=== PATIENT | male | born 1990 ===

== ENCOUNTER 2023-08-06 03:57 | Emergency (ER) | payer BC, SELFPAY ==
[2023-08-06 03:58] VITALS: BP 142/94
[2023-08-06 04:25] VITALS: BMI 26.0
--- NOTE | 2023-08-06 04:36 | ED.GENMED ---
History of Present Illness
<BARBARA Diaz - Last Filed: 08/06/23 04:47>
General
Chief Complaint: Abdominal Pain
Source: patient
Time Seen by Provider: 08/06/23 04:21
Travel History
Have you had any contact with someone who has COVID-19?: No
Do you have any symptoms of coronavirus? Fever > 100 degrees, chills, cough, shortness of breath, sore throat, loss of taste or smell, muscle aches, or headache?: No
History of Present Illness
History of Present Illness:
32 year old male with no significant past medical hx who presents with sudden onset of sharp LLQ abdominal pain that occurred just prior to arrival. Pt had similar pain 2 days ago to the LUQ. Pain lasted for about 15-20 minutes and resolved. Tonight
the pain woke him up. He took ibuprofen 600 mg at 0330 today. His pain lasted for 30 minutes. Currently he is pain-free. He does report the pain radiates down the groin and he has dull pain to his penis. Denies fevers/chills, flank pain, n/v/d,
dysuria, hematuria. He has never had this pain before. He reports hx of appendectomy.
Review of Systems
<BARBARA Diaz - Last Filed: 08/06/23 04:47>
Review of Systems
Allergies reviewed?: Yes
All Other Systems: ROS reviewed and negative except as documented in HPI and ROS
Constitutional: Reports no symptoms
EENT: Reports no symptoms
Respiratory: Reports no symptoms
Cardiac: Reports no symptoms
ABD/GI: Reports abdominal pain
: Reports no symptoms
Musculoskeletal: Reports no symptoms
Skin: Reports no symptoms
Neurological: Reports no symptoms
Endocrine: Reports no symptoms
Hematologic/Lymphatic: Reports no symptoms
Psychiatric: Reports no symptoms
Phy Exam
<BARBARA Diaz - Last Filed: 08/06/23 04:47>
General Physical Exam
General Presentation: well appearing and no apparent distress
General age: appears stated age
General Skin: warm and dry
General Habitus: normal
General Mental: alert
General Hydration: appears well hydrated
General Chronic Disability: contractures
Cardiovascular Exam
Cardiovascular Exam: regular rate/rhythm, no edema, no gallop and no murmur
Pulmonary Exam
Pulmonary Exam: lungs clear, no respiratory distress, no rales, no crackles, no rhonchi, no wheezing and no cough
Gastrointestinal Exam
Gastrointestinal Exam: normal bowel sounds, non tender, soft, no pulsatile mass, non distended and no cva tenderness
Skin Exam
Skin Exam: normal color and warm/dry
Psychiatric Exam
Psychiatric Exam: normal mood/affect
Course
<BARBARA Diaz - Last Filed: 08/06/23 04:47>
Orders/Labs/Results
Orders:
Orders
08/06/23 04:26
IV Insert/Care/Rem.- Treatment PRN
08/06/23 04:28
Complete Blood Count/With Diff Urgent
Comprehensive Metabolic Panel Urgent
Lipase Urgent
Manual Differential Urgent
Urinalysis Reflex To Culture Urgent
Date Specimen was Collected: 08/06/23
Time Specimen was Collected: 04:26
Urine Microscopic Reflex Cult Urgent
08/06/23 04:43
CT Abd/pel Without Iv Or Oral Urgent
Comment:
Reason For Exam: intermittent LUQ to LLQ pain x 3 days
Abnormal Lab Results
08/06/23
04:28
Abs Neuts (Manual) 1.3 L 10^3/uL
(1.4-6.5)
Segmented Neutrophils 28 L %
(42-75)
Lymphocytes (Manual) 61 H %
(20-51)
Lipase 427 H U/L
(23-300)
Urine Ketones 1+ A
(Negative)
Ur Occult Blood Reflex 4+ A
(Negative)
Urine RBC 80-90 A /HPF
(0-2)
Urine Bacteria (Reflex) Few A
(Negative)
08/06/23 04:28
08/06/23 04:28
Vital Signs
Initial and Last Documented VS:
Initial Vital Signs
Temp Pulse Resp BP Pulse Ox
98.2 F 64 1 142/94 98
08/06/23 03:58 08/06/23 03:58 08/06/23 03:58 08/06/23 03:58 08/06/23 03:58
Last Documented Vital Signs
Temp Pulse Resp BP Pulse Ox
98.2 F 64 1 142/94 98
08/06/23 03:58 08/06/23 03:58 08/06/23 03:58 08/06/23 03:58 08/06/23 03:58
<Evelyn Bar, DO - Last Filed: 08/06/23 06:14>
Orders/Labs/Results
Orders:
Orders
08/06/23 04:26
IV Insert/Care/Rem.- Treatment PRN
08/06/23 04:28
Complete Blood Count/With Diff Urgent
Comprehensive Metabolic Panel Urgent
Lipase Urgent
Manual Differential Urgent
Urinalysis Reflex To Culture Urgent
Date Specimen was Collected: 08/06/23
Time Specimen was Collected: 04:26
Urine Microscopic Reflex Cult Urgent
08/06/23 04:43
CT Abd/pel Without Iv Or Oral Urgent
Comment:
Reason For Exam: intermittent LUQ to LLQ pain x 3 days
Abnormal Lab Results
08/06/23
04:28
Abs Neuts (Manual) 1.3 L 10^3/uL
(1.4-6.5)
Segmented Neutrophils 28 L %
(42-75)
Lymphocytes (Manual) 61 H %
(20-51)
Lipase 427 H U/L
(23-300)
Urine Ketones 1+ A
(Negative)
Ur Occult Blood Reflex 4+ A
(Negative)
Urine RBC 80-90 A /HPF
(0-2)
Urine Bacteria (Reflex) Few A
(Negative)
08/06/23 04:28
08/06/23 04:28
Vital Signs
Initial and Last Documented VS:
Initial Vital Signs
Temp Pulse Resp BP Pulse Ox
98.2 F 64 1 142/94 98
08/06/23 03:58 08/06/23 03:58 08/06/23 03:58 08/06/23 03:58 08/06/23 03:58
Last Documented Vital Signs
Temp Pulse Resp BP Pulse Ox
98.2 F 64 1 142/94 98
08/06/23 03:58 08/06/23 03:58 08/06/23 03:58 08/06/23 03:58 08/06/23 03:58
<BARBARA Diaz - Last Filed: 08/06/23 04:47>
MDM/Problems Addressed
Differential Diagnosis Includes:
renal colic, nephrolithiasis, SBO, colitis
MDM/Problems Addressed:
32 year old male who presents with LLQ abdominal pain that began just prior to arrival.
Chronic conditions affecting care: Psychiatric illness (anxiety)
<BARBARA Diaz - Last Filed: 08/06/23 04:47>
*Critical Care Note
Total Time (30-74mins, 75-104mins- exclusive of procedures): Not Applicable
<Evelyn Bar DO - Last Filed: 08/06/23 06:14>
*Radiology
Radiology exam reviewed: radiology read reviewed
*Pulse Oximetry
Patient hypoxic: no
ED Attending Note
<BARBARA Diaz - Last Filed: 08/06/23 04:47>
-
Portions of this chart may have been created with voice recognition software.� Occasional wrong word or��sound alike� substitutions may have occurred due to the inherent limitations of voice recognition software.
<Evelyn Bar DO - Last Filed: 08/06/23 06:14>
ED Attending Note
Patient seen and examined by attending physician: Yes
I performed the substantive portion of visit, reviewed & personally made and approve the management plan that is documented in note by myself or EJSSE.: Yes
I performed a history and physical exam of patient and discussed management with resident, I reviewed resident's note and agree with documented findings and plan of care.: Yes
ED Attending Note:
This is a 32-year-old gentleman who presents with 2-day history of initially intermittent moderate to severe acute left upper quadrant pain that has been intermittent in nature that has progressed to intermittent left lower quadrant pain, again
moderate to severe, intermittent. He awoke this morning with abrupt onset of recurrent left lower quadrant pain accompanied with discomfort at his distal urethra. He took ibuprofen 600 mg around 330 this morning and he is currently pain-free. No
history of similar episodes in the past. He does admit that left lower quadrant pain intermittently radiates to his left back. He denies leg pain or weakness. No testicular pain. No nausea nor vomiting.
He denies dysuria nor urgency nor hematuria but does note some urethral discomfort with onset of pain.
His only daily medication is sertraline. He has been taking ibuprofen intermittently for left-sided abdominal pain.
GENERAL: 32-year-old gentleman appears his stated age, bright and alert, pleasant, appears in no acute distress. is accompanying.
EYE: anicteric
NECK: Supple, nontender, no meningismus, no significant adenopathy.
ENT: oral mucosa is moist. No rhinorrhea.
CARDIAC: Regular rate and rhythm. no murmur.
LUNGS: Clear breath sounds bilaterally, no acute respiratory distress, no wheezes/rales/rhonchi
ABDOMEN: Soft, nondistended, without focal tenderness, no r/g, no cvat. normoactive BS. No palpable masses. No inguinal tenderness nor masses.
NEUROLOGICAL: Alert and oriented x3, no focal neuro deficits. Gait is vaz and steady.
SKIN: Warm and dry, normal color, skin intact. No rash.
MUSCULOSKELETAL: No C/C/E. peripheral pulses are full and equal b/l. No palpable tenderness.
PSYCH: Normal and appropriate interaction.
Concern for intermittent renal colic, other consideration is intermittent small bowel obstruction, less likely musculoskeletal pain.
Will check labs and urinalysis and plan for CT abdomen pelvis.
08/06/2023 0612 AM
Patient remains pain-free and comfortable. Abdomen is soft and nontender.
Labs are unremarkable save for mildly elevated lipase.
Urinalysis shows +4 blood, 80-90 RBCs but no evidence of infection.
CAT scan is unremarkable, no evidence of obstructing renal stone, no cholecystitis nor pancreatitis. Status post appendectomy.
I suspect patient may have recently passed a stone and he remains comfortable, pain-free.
Discussed importance of remaining well-hydrated on a daily basis.
If severe pain recurs prompt return to the ED.
Otherwise follow-up with PCP.
Discharge Plan
Departure
Patient Disposition: Home (Routine Discharge)
Date of Disposition: 08/06/23
Time of Disposition: 05:59
Patient with high blood pressure during this ER visit?: Yes
Condition: Good
Discharge Problem:
intermittent left renal colic, Hematuria, microscopic, Serum lipase elevation
Instructions: Renal Colic (DC), BLOOD PRESSURE
Prescriptions:
No Action
sertraline [Zoloft] 25 mg Tablet
25 mg PO DAILY
Referrals:
Ian Rodriguez MD [Active] - As needed
Kymberly Reyes CRNP [Family Provider] - Call in 1-3 days for appt
Activity Restrictions/Additional Instructions:
Your history and exam are most consistent with intermittent left kidney pain, concerning for recently passed kidney stone. You have microscopic blood in your urine.
CAT scan does not identify an obstructing kidney stone and I suspect you may have already passed it.
Your labs are overall unremarkable save for mildly elevated lipase which is a pancreatic enzyme. Your history and exam is not consistent with acute pancreatitis and pancreas is unremarkable on CAT scan.
I want you to stay well-hydrated on a daily basis. Mild urethral discomfort should resolve over the next day or 2.
As I suspect you have already passed kidney stone, left-sided abdominal pain should not recur; if it does, prompt return to the ED for further evaluation.
Interventions
Interventions:
*Risk Screen - Suicide Last Done: 08/06/23 04:18
*General Assessment Last Done: 08/06/23 03:58
*Neglect/Abuse Screening Last Done: 08/06/23 04:18
*ED COVID-19 Vaccine History Last Done: 08/06/23 04:18
YD-Isviwf-Yojcldyxoi Assessment Last Done: 08/06/23 04:18
Discharge Date and Time
Print Language: KENYAN
[2023-08-06 04:39] LABS: Hematocrit 46.7 % (39.0-52.0); Hemoglobin 16.7 g/dL (13.0-18.0); Mean Corp Hgb Conc. 35.8 g/dL (33.0-37.0); Mean Corpuscular Hgb 30.3 pg (27.0-31.0); Mean Corpuscular Volume 84.8 fL (80.0-94.0); Mean Platelet Volume 8.3 fL (7.4-10.4); Nucleated Red Blood Cells % 0 % (-); Platelet Count 178 10^3/uL (130-400); Red Blood Cell Count 5.51 10^6/uL (4.70-6.10); Red Cell Dist. Width 11.6 % (11.5-14.5); White Blood Cell Count 4.8 10^3/uL (4.8-10.8)
[2023-08-06 05:06] LABS: ALT (SGPT) 32 U/L (0-50); AST (SGOT) 30 U/L (17-59); Albumin 4.5 g/dl (3.5-5.0); Alkaline Phosphatase 75 U/L (38-126); Blood Urea Nitrogen 12 mg/dl (9-20); Calcium 9.5 mg/dl (8.4-10.2); Carbon Dioxide 25 mmol/L (22-30); Chloride 105 mmol/L (98-107); Estimated Creatinine Clearance > 125 ml/min; Glucose 98 mg/dl (70-99); Lipase 427 U/L (23-300); Sodium 140 mmol/L (135-145); Total Bilirubin 0.5 mg/dl (0.2-1.3); Total Protein 7.4 g/dl (6.3-8.2); eGFR > 60.00
[2023-08-06 05:23] LABS: Urine Albumin Negative (Neg - Trace); Urine Bilirubin Negative (Negative); Urine Character Clear (Clear); Urine Color Yellow; Urine Glucose Negative (Negative); Urine Ketone 1+ (Negative); Urine Leukocyte Negative (Negative); Urine Nitrite Negative (Negative); Urine Occult Blood 4+ (Negative); Urine Specific Gravity 1.015 (<1.030); Urine Urobilinogen Negative (Neg - 1+)
[2023-08-06 05:37] LABS: Absolute Neutrophils -Man Diff 1.3 10^3/uL (1.4-6.5); Atypical Lymphocytes 6 %; Band Neutrophils 0 % (0-3); Eosinophils 1 % (0-6); Lymphocytes 61 % (20-51); Monocytes 4 % (2-9); Normal RBC Morphology Yes; Platelets Checked Yes; Segmented Neutrophils 28 % (42-75); Total Cells Counted 100
[2023-08-06 05:46] LABS: Urine Bacteria Few (Negative); Urine Red Blood Cell 80-90 /HPF (0-2); Urine White Cell 0-2 /HPF (0-5)
[2023-08-06 06:00] VITALS: BP 127/92
[2023-08-06 06:26] VITALS: BP 137/80
== END 2023-08-06 06:28 | disposition home or self-care (01) ==
LOC: EMR 03:57
PROVIDERS: EMERGENCY PHYSICIAN Emergency Medicine; FAMILY PHYSICIAN Nurse Practitioner
DX: N23 Unspecified renal colic (principal); R31.29 Other microscopic hematuria; R74.8 Abnormal levels of other serum enzymes
CPT/HCPCS: 99284; 74176; 80053; 81003; 81015; 83690; 85025

== ENCOUNTER → 2023-08-09 17:30 | Outpatient (REF) | payer BC, SELFPAY | LOC: RAD 17:30 | PROVIDERS: ATTENDING PHYSICIAN Physician Assistant; FAMILY PHYSICIAN Nurse Practitioner | DX: N50.812 Left testicular pain (principal) | CPT/HCPCS: 76870; 93976 ==